=== PATIENT | male | born 1960 | race Caucasian/White ===

== ENCOUNTER → 2017-10-13 | Outpatient (CLI) | payer OTHER ==
--- NOTE | 2017-10-13 10:34 | RAD ---
2 views left hip 10/13/2017 2:00 AM Indication: DISABILITY LOW BACK AND HIP PAIN Comparison: None Findings: No evidence of acute fracture or dislocation is identified. Mild superior joint space narrowing and some minimal subchondral sclerosis involving the lateral acetabulum noted. No acute soft tissue changes are seen. Impression: Mild degenerative changes of the left hip without evidence of acute osseous abnormality
--- NOTE | 2017-10-13 11:19 | RAD ---
Low back pain, 3 views, 10/13/2017: History: Chronic low back and hip pain There are 4 lumbar type vertebral bodies. For purposes of this report the lowest visible disc space will be considered to be L4-S1. The lumbar vertebral heights are well-maintained. There are moderate scattered marginal spurs, including prominent posterior spurring at L4-S1. There is mild narrowing of scattered disc spaces in the lumbar spine. There are moderate degenerative changes involving the facet joints in the lower lumbar spine. There is a minimal associated retrolisthesis at L3-4. No fracture is identified. Minimal aortic calcific plaquing is present. IMPRESSION: 1. Moderate multilevel degenerative change. 2. Minimal retrolisthesis at L4-S1 due to facet joint arthropathy.
== END | disposition home or self-care (01) ==
LOC: DXRAD 09:48
PROVIDERS: ATTEND Surgery
DX: M48.061 Spinal stenosis, lumbar region without neurogenic claudication (principal); M12.88 Other specific arthropathies, not elsewhere classified, other specified site; M25.552 Pain in left hip; G89.29 Other chronic pain
CPT/HCPCS: 72100; 73502

== ENCOUNTER 2019-07-12 21:46 | Observation (INO) | payer MEDICARE, MEDICAID ==
[~2019-07-12] VITALS: Ht 180.3 cm; Wt 95.9 kg
[2019-07-12] MEDS ORDERED: IV RINGERS SOLUTION,LACTATED 1,000 ML IV SCH (21:55)
--- NOTE | 2019-07-12 21:55 | PHYS DOC ---
Past History Past Medical History: Anxiety, CAD, Hypertension, Other Smoking: Chew Adult General Chief Complaint Chief Complaint: ".. I got this chest pain.. it started maybe 45 minutes ago.. here on the Lt . and into my Lt arm.. it really got worse the last 25 minutes.. I usually go to [place]... I did take my aspirin today.. I have not been taking my other meds.. " HPI HPI Patient is a 59 year old male who presents with above hx and complaints of Lt sided chest pain that radiates into Lt shoulder and arm... Pt. states pain initially was 10 out of 10. Patient did have some diaphoresis with dyspnea and pain. Patient states he's first diagnosed with coronary artery disease approximately 5 years ago at [place]. At that time he had a stress treadmill testing. Patient has also long-standing history of hypertension with episodes with accelerated hypertension. Patient states he has been compliant with his meds recently. No history of injury. No History of significant ill contacts. No history immunosuppression. Chest pain post Ativan,ASA, Nitro, Labetalol, Lovenox = 2/10. Pain 0/10 by time of transfer to [facility]. Patient doesn't smoke but does chew tobacco. There is a family history of mother with dementia , his father that had coronary artery disease with eventual triple bypass age 70. Has brothers and sisters but does not know their medical status. Review of Systems Review of Systems Constitutional: Denies fever or chills [] Eyes: Denies change in visual acuity, redness, or eye pain [] HENT: Denies nasal congestion or sore throat [] Respiratory: Denies cough or shortness of breath [] Cardiovascular: No additional information not addressed in HPI [] GI: Denies abdominal pain, nausea, vomiting, bloody stools or diarrhea [] : Denies dysuria or hematuria [] Musculoskeletal: Denies back pain or joint pain [] Integument: Denies rash or skin lesions [] Neurologic: Denies headache, focal weakness or sensory changes [] Endocrine: Denies polyuria or polydipsia [] All other systems were reviewed and found to be within normal limits, except as documented in this note. Family History Family History Coronary artery disease and dementia Current Medications Current Medications See nursing for home medications Allergies Allergies No known drug allergies Physical Exam Physical Exam Constitutional: in acute distress, non-toxic appearance. [] HENT: Normocephalic, atraumatic, bilateral external ears normal, oropharynx moist, no oral exudates, nose normal. []Mustache to chops facial hair. Eyes: PERRLA, EOMI, conjunctiva normal, no discharge. [] Neck: Normal range of motion, no tenderness, supple, no stridor. [] Cardiovascular: Tachycardia Heart rate regular rhythm, no murmur []PMI to the left Lungs & Thorax: Bilateral breath sounds equal at apex with scattered wheezes auscultation . Lt. basilar few rhonchi and crackles. Abdomen: Bowel sounds decreased, soft, no tenderness, no masses, no pulsatile masses. [] Skin: Warm, mildly diaphoretic, no erythema, no rash. [] Back: No tenderness, no CVA tenderness. [] Extremities: No tenderness, no cyanosis, no clubbing, ROM intact, no edema. [] No cording appreciated. Neurologic: Alert and oriented X 3, normal motor function, normal sensory function, no focal deficits noted. [] Psychologic: Affect anxious, judgement normal, mood normal. [] EKG EKG My interpretation EKG shows a sinus tachycardia at 146 eats per minute. Does have some leftward axis. Does have an inferior strain pattern.[] Radiology/Procedures Radiology/Procedures [][address] [address] IMAGING REPORT Signed PATIENT: DAIN ANN ACCOUNT: [id number] : 1960 LOCATION: ER AGE: 59 SEX: M EXAM STATUS: REG ER ORD. PHYSICIAN: DAFNE VALLES MD REASON: cp, SHORT OF AIR, WEAKNESS, X A FEW HOURS PROCEDURE: PORTABLE CHEST 1V Exam: Chest one view INDICATION: Shortness of air TECHNIQUE: Frontal view of the chest Comparisons: None FINDINGS: The cardiomediastinal silhouette and pulmonary vessels are within normal limits. Strandy opacity at the left lung base, likely representing atelectasis. Remaining lungs are clear. IMPRESSION: Left basilar atelectasis. Electronically signed by: Ar Puente MD (07/12/2019 11:40 PM) [facility] DICTATED AND SIGNED BY: AR PUENTE MD DATE: 07/12/19 6835 CC: DAFNE VALLES MD; PCP,NO ~ Course & Med Decision Making Course & Med Decision Making Pertinent Labs and Imaging studies reviewed. (See chart for details) Patient admitted to Dr. Conley with consult to cardiology.. Heart score 4 to 5 Impression: 1. Chest pain 2. Accelerated HTN 3. SVTachycardia 4. Tobacco Use- Chews 5. Hypomagnesium 1.6 6. Urine Tox - Marijuana [] Dragon Disclaimer Dragon Disclaimer This electronic medical record was generated, in whole or in part, using a voice recognition dictation system. Departure Departure: Disposition: HOME/RESIDENCE PRIOR TO ADM Condition: STABLE Referrals: PCP,ETHAN (PCP) Eder Disclaimer This chart was dictated in whole or in part using Voice Recognition software in a busy, high-work load, and often noisy Emergency Department environment. It may contain unintended and wholly unrecognized errors or omissions. DAFNE VALLES MD Jul 12, 2019 21:55
[2019-07-12] MEDS ORDERED: NITROGLYCERIN OINT 1 GM PACKET. ONE (22:00)
[2019-07-12] MEDS ORDERED: ENOXAPARIN ** NOTE DOSE ** SYRINGE SQ ONE (22:00)
[2019-07-12] MEDS ORDERED: ASPIRIN 81 MG TAB.CHEW ONE (22:00)
[2019-07-12] MEDS ORDERED: NITROGLYCERIN OINT 1 GM PACKET. TP ONE (22:00)
[2019-07-12] MEDS ORDERED: ASPIRIN 81 MG TAB.CHEW PO ONE (22:00)
[2019-07-12] MEDS ORDERED: LORazepam 1 MG TABLET PO ONE (22:00)
[2019-07-12 22:14] LABS: BASO # 0.3 x10^3/uL (0.0-0.2); BASO % 2 % (0-3); EOS % 0 % (0-3); HEMATOCRIT 45.4 % (39.0-53.0); HEMOGLOBIN 15.4 g/dL (13.0-17.5); LYMPH # 2.1 x10^3/uL (1.0-4.8); LYMPH % 19 % (24-48); MEAN CORPUSCULAR HEMOGLOBIN 31 pg (25-35); MEAN CORPUSCULAR HGB CONC 34 g/dL (31-37); MEAN CORPUSCULAR VOLUME 90 fL (79-100); MONO # 0.2 x10^3/uL (0.0-1.1); MONO % 1 % (0-9); NEUT # 8.4 x10^3uL (1.8-7.7); NEUT % 77 % (31-73); PLATELET COUNT 216 x10^3/uL (140-400); RED BLOOD COUNT 5.03 x10^6/uL (4.30-5.70); RED CELL DISTRIBUTION WIDTH 13.8 % (11.5-14.5); WHITE BLOOD COUNT 10.9 x10^3/uL (4.0-11.0)
[2019-07-12] MEDS ORDERED: LABETALOL 20 MG/4 ML DISP.SYRIN. IVP ONE ×2 (22:15→23:00)
[2019-07-12 22:33] LABS: ALBUMIN 3.9 g/dL (3.4-5.0); CALCIUM 8.6 mg/dL (8.5-10.1); CREATININE 1.2 mg/dL (0.7-1.3); DIRECT BILIRUBIN 0.2 mg/dL (0.0-0.2); GFR 62.4; MAGNESIUM 1.6 mg/dL (1.8-2.4); POTASSIUM 3.7 mmol/L (3.5-5.1); TOTAL PROTEIN 7.5 g/dL (6.4-8.2)
[2019-07-12] MEDS ORDERED: ONDANSETRON PF 4 MG/2 ML VIAL. IV PRN (22:45)
[2019-07-12] MEDS ORDERED: MORPHINE SULFATE 2 MG/ML DISP.SYRIN. IV PRN (22:45)
[2019-07-12] MEDS ORDERED: LORazepam 1 MG TABLET PO PRN (22:45)
[2019-07-12] MEDS ORDERED: MAGNESIUM SULFATE 2GM 50 ML IV ONE (22:45)
[2019-07-12] MEDS ORDERED: ACETAMINOPHEN 325 MG TABLET PO PRN (22:45)
--- NOTE | 2019-07-12 23:43 | RAD ---
Exam: Chest one view INDICATION: Shortness of air TECHNIQUE: Frontal view of the chest Comparisons: None FINDINGS: The cardiomediastinal silhouette and pulmonary vessels are within normal limits. Strandy opacity at the left lung base, likely representing atelectasis. Remaining lungs are clear. IMPRESSION: Left basilar atelectasis. Electronically signed by: Ar Tripp MD (07/12/2019 11:40 PM) [facility]
[2019-07-12 23:54] LABS: BARBITURATES NEG (NEG); BENZODIAZEPINES NEG (NEG); CANNABINOIDS POS (NEG); COCAINE NEG (NEG); METHADONE NEG (NEG); OPIATES NEG (NEG); PHENCYCLIDINE NEG (NEG)
[2019-07-12 23:57] LABS: AMPHETAMINE/METHAMPHETAMINE NEG (NEG)
[2019-07-13 00:02] LABS: BACTERIA,URINE 0 /HPF (0-FEW); BILIRUBIN,URINE NEG (NEG); CLARITY,URINE CLEAR; COLOR,URINE YELLOW; GLUCOSE,URINE NEG (NEG); NITRITE,URINE NEG (NEG); RBC,URINE 0 /HPF (0-2); SQUAMOUS EPITHELIAL CELL,UR OCC /LPF; UROBILINOGEN,URINE 0.2 mg/dL (0.2 mg/dL); WBC,URINE OCC /HPF (0-4)
[2019-07-13 00:15] VITALS: BP 128/89
--- NOTE | 2019-07-13 00:15 | NUR ---
Pt was admitted from ER to ICU bed 5 via [facility], accompanied by EMS, nursing staff and son. Pt transferred from [place] to bed independently with stand-by assist, steady gait noted. Pt here for chest pain, high blood pressure and electrolyte imbalance. Pt is A&Ox4 pleasant, cooperative and very talkative. Pt currently denies chest pain or discomfort. Admission assessment completed. Health history and home medications reviewed with pt. Pt lives at home alone in the "[place]". VSS. Pt placed on Telemetry, S.tachy noted on monitor. Lovenox for VTE. Py UTD on flu vaccine. Pt was given written information regarding hospital policies, unit procedures and contact persons. Valuables were checked and left at bedside. Cardiology consulted. Call light within reach.
[2019-07-13] MEDS ORDERED: QUET400T4 PO (00:47)
[2019-07-13] MEDS ORDERED: ASPI81TA11 PO (00:47)
[2019-07-13] MEDS: IPRATRPIUM/ALBUTEROL 0.5/2.5MG 3 ML NEBU. NEB SCH ×2 (05:39→09:14)
[2019-07-13 05:40] VITALS: BP 123/86
--- NOTE | 2019-07-13 06:14 | EKG ---
[address] [address] Test Date: 2019-07-12 Test Time: 21:58:36 Pat Name: DAIN ANN Department: Room: Gender: M Independent Crop Consultant: : 1960 Requested By: DAFNE VALLES Order Number: [id number] Reading MD: Measurements Intervals [place] Rate: 146 P: -118 KS: 122 QRS: -26 QRSD: 84 T: 75 QT: 270 QTc: 422 Interpretive Statements SUPRAVENTRICULAR TACHYCARDIA LEFTWARD AXIS QRS(T) CONTOUR ABNORMALITY CONSIDER INFERIOR MYOCARDIAL DAMAGE T ABNORMALITY IN HIGH LATERAL LEADS ABNORMAL ECG RI6.01 No previous ECG available for comparison
[2019-07-13 06:37] LABS: BASO # 0.1 x10^3/uL (0.0-0.2); BASO % 2 % (0-3); EOS % 1 % (0-3); HEMATOCRIT 40.8 % (39.0-53.0); LYMPH # 2.8 x10^3/uL (1.0-4.8); LYMPH % 44 % (24-48); MEAN CORPUSCULAR HEMOGLOBIN 31 pg (25-35); MEAN CORPUSCULAR HGB CONC 34 g/dL (31-37); MEAN CORPUSCULAR VOLUME 91 fL (79-100); MONO # 0.8 x10^3/uL (0.0-1.1); MONO % 13 % (0-9); NEUT # 2.7 x10^3uL (1.8-7.7); NEUT % 42 % (31-73); PLATELET COUNT 209 x10^3/uL (140-400); RED BLOOD COUNT 4.51 x10^6/uL (4.30-5.70); RED CELL DISTRIBUTION WIDTH 13.8 % (11.5-14.5); WHITE BLOOD COUNT 6.4 x10^3/uL (4.0-11.0)
[2019-07-13 06:47] LABS: CALCIUM 8.3 mg/dL (8.5-10.1); CREATININE 1.1 mg/dL (0.7-1.3)
[2019-07-13 07:10] VITALS: BP 129/90
--- NOTE | 2019-07-13 07:58 | PDOC2 ---
CARDIAC CONSULT DATE OF CONSULT Date Of Consult DATE: 07/13/19 TIME: 07:55 REASON FOR CONSULT Reason for Consult Chest pain Accelerated HTN REFERRING PHYSICIAN Referring Physician Dr. Ramirez SOURCE Source: Chart review, Patient HPI History of Present Illness This is a 59 yo male who presented secondary to chest pain. Patient reports he woke in the middle of the night with intense shaking all over his body. Began having stabbing pain in his left chest. [place] slightly short of breath. No dizziness, diaphoresis, or nausea/vomiting. Palpitation to left chest seemed to make pain worse. Has some numbness in his left arm. Had difficulty getting out of bed due to the shaking so he called his so for help. Has had these symptoms before and has been evaluated with a treadmill stress that he reports as normal. Is very active daily walking up to 2 miles per day without any chest pain. PAST MEDICAL HISTORY Cardiovascular: HTN GI: GERD Psych: Anxiety, Bipolar, Depression, Schizophrenia, Other (PTSD) PAST SURGICAL HISTORY Past Surgical History: Appendectomy, Hernia Repair FAMILY HISTORY Family History: Coronary Artery Disease (dad ) SOCIAL HISTORY Smoke: No ALCOHOL: none Drugs: Marijuana Lives: Alone CURRENT MEDICATIONS Current Medications Current Medications Aspirin (Children'S Aspirin) 324 mg 1X ONCE PO Last administered on 07/12/19at 22:06; Start 07/12/19 at 22:00; Stop 07/12/19 at 22:01; Status DC Enoxaparin Sodium (Lovenox 150mg Syringe) 90 mg 1X ONCE SQ Last administered on 07/12/19at 22:13; Start 07/12/19 at 22:00; Stop 07/12/19 at 22:01; Status DC Lactated Ringer's 1,000 ml @ 100 mls/hr Q10H IV Last administered on 07/12/19at 22:03; Start 07/12/19 at 21:55; Stop 07/13/19 at 07:54 Nitroglycerin (Nitro-Bid Oint) 1 inch 1X ONCE TP Last administered on 07/12/19at 22:06; Start 07/12/19 at 22:00; Stop 07/12/19 at 22:01; Status DC Lorazepam (Ativan) 1 mg 1X ONCE PO Last administered on 07/12/19at 22:13; Start 07/12/19 at 22:00; Stop 07/12/19 at 22:01; Status DC Aspirin (Children'S Aspirin) 81 mg STK-MED ONCE .ROUTE ; Start 07/12/19 at 22:00; Stop 07/12/19 at 22:00; Status DC Nitroglycerin (Nitro-Bid Oint) 1 inch STK-MED ONCE .ROUTE ; Start 07/12/19 at 22:00; Stop 07/12/19 at 22:00; Status DC Labetalol HCl (Normodyne) 10 mg 1X ONCE IVP Last administered on 07/12/19at 22:26; Start 07/12/19 at 22:15; Stop 07/12/19 at 22:16; Status DC Ondansetron HCl (Zofran) 4 mg PRN Q4HRS PRN IV NAUSEA/VOMITING; Start 07/12/19 at 22:45; Stop 07/13/19 at 22:44 Morphine Sulfate (Morphine 2mg Syringe) 2 mg PRN Q4HRS PRN IV PAIN; Start 07/12/19 at 22:45; Stop 07/13/19 at 22:44 Acetaminophen (Tylenol) 650 mg PRN Q4HRS PRN PO FEVER Last administered on 07/13/19at 07:07; Start 07/12/19 at 22:45; Stop 07/13/19 at 22:44 Albuterol/ Ipratropium (Duoneb) 3 ml RTQID NEB Last administered on 07/13/19at 05:39; Start 07/13/19 at 08:00; Stop 07/14/19 at 07:59 Nitroglycerin (Nitro-Bid Oint) 1 inch TID TP ; Start 07/13/19 at 09:00 Aspirin (Children'S Aspirin) 81 mg DAILY PO ; Start 07/13/19 at 09:00 Enoxaparin Sodium (Lovenox 100mg Syringe) 90 mg BID SQ ; Start 07/13/19 at 09:00 Lorazepam (Ativan) 1 mg QIDPRN PRN PO Anxiety; Start 07/12/19 at 22:45 Magnesium Sulfate 50 ml @ 25 mls/hr 1X ONCE IV Last administered on 07/12/19at 22:55; Start 07/12/19 at 22:45; Stop 07/13/19 at 00:44; Status DC Labetalol HCl (Normodyne) 10 mg 1X ONCE IVP Last administered on 07/12/19at 22:56; Start 07/12/19 at 23:00; Stop 07/12/19 at 23:01; Status DC Active Scripts Active Reported Seroquel (Quetiapine Fumarate) 400 Mg Tablet 400 Mg PO QHS LAST DOSE GIVEN: DATE: TIME: NEXT DOSE DUE: DATE: TIME: Low Dose Aspirin Ec (Aspirin) 81 Mg Tablet.dr 81 Mg PO HS LAST DOSE GIVEN: DATE: TIME: NEXT DOSE DUE: DATE: TIME: ALLERGIES Allergies: Coded Allergies: No Known Drug Allergies (Unverified , 07/12/19) ROS Review of Systems 14 point ROS conducted with pertinent positives noted above in hPI PHYSICAL EXAM General: Alert, Oriented X3, Cooperative, No acute distress HEENT: Atraumatic, Mucous membr. moist/pink Lungs: Clear to auscultation, Normal air movement Heart: Regular rate, Normal S1, Normal S2, No murmurs Abdomen: Soft, No tenderness Extremities: No edema, Normal pulses Skin: No breakdown Neuro: Normal speech, Sensation intact Psych/Mental Status: Mental status NL, Mood NL MUSCULOSKELETAL: Osteoarthritic changes both hands VITALS Vital Signs Vital Signs Date Time Temp Pulse Resp B/P (MAP) Pulse Ox O2 Delivery O2 Flow Rate FiO2 07/13/19 07:14 Room Air 07/13/19 07:10 82 129/90 (103) 07/13/19 05:40 97 07/13/19 05:40 98.0 16 LABS LABS Laboratory Tests Test 07/12/19 21:55 07/12/19 23:00 07/13/19 02:00 07/13/19 05:50 White Blood Count 10.9 x10^3/uL (4.0-11.0) 6.4 x10^3/uL (4.0-11.0) Red Blood Count 5.03 x10^6/uL (4.30-5.70) 4.51 x10^6/uL (4.30-5.70) Hemoglobin 15.4 g/dL (13.0-17.5) 14.0 g/dL (13.0-17.5) Hematocrit 45.4 % (39.0-53.0) 40.8 % (39.0-53.0) Mean Corpuscular Volume 90 fL (79-100) 91 fL (79-100) Mean Corpuscular Hemoglobin 31 pg (25-35) 31 pg (25-35) Mean Corpuscular Hemoglobin Concent 34 g/dL (31-37) 34 g/dL (31-37) Red Cell Distribution Width 13.8 % (11.5-14.5) 13.8 % (11.5-14.5) Platelet Count 216 x10^3/uL (140-400) 209 x10^3/uL (140-400) Neutrophils (%) (Auto) 77 % (31-73) 42 % (31-73) Lymphocytes (%) (Auto) 19 % (24-48) 44 % (24-48) Monocytes (%) (Auto) 1 % (0-9) 13 % (0-9) Eosinophils (%) (Auto) 0 % (0-3) 1 % (0-3) Basophils (%) (Auto) 2 % (0-3) 2 % (0-3) Neutrophils # (Auto) 8.4 x10^3uL (1.8-7.7) 2.7 x10^3uL (1.8-7.7) Lymphocytes # (Auto) 2.1 x10^3/uL (1.0-4.8) 2.8 x10^3/uL (1.0-4.8) Monocytes # (Auto) 0.2 x10^3/uL (0.0-1.1) 0.8 x10^3/uL (0.0-1.1) Eosinophils # (Auto) 0.0 x10^3/uL (0.0-0.7) 0.0 x10^3/uL (0.0-0.7) Basophils # (Auto) 0.3 x10^3/uL (0.0-0.2) 0.1 x10^3/uL (0.0-0.2) Prothrombin Time 10.4 SEC (9.4-11.4) Prothromb Time International Ratio 1.0 (0.9-1.1) Activated Partial Thromboplast Time 27 SEC (23-33) D-Dimer (Jadyn) 0.46 mg/L (0.00-0.50) Sodium Level 140 mmol/L (136-145) 142 mmol/L (136-145) Potassium Level 3.7 mmol/L (3.5-5.1) 4.0 mmol/L (3.5-5.1) Chloride Level 103 mmol/L (98-107) 105 mmol/L (98-107) Carbon Dioxide Level 22 mmol/L (21-32) 29 mmol/L (21-32) Anion Gap 15 (6-14) 8 (6-14) Blood Urea Nitrogen 18 mg/dL (8-26) 15 mg/dL (8-26) Creatinine 1.2 mg/dL (0.7-1.3) 1.1 mg/dL (0.7-1.3) Estimated GFR (Cockcroft-Gault) 62.4 69.0 Glucose Level 114 mg/dL (70-99) 100 mg/dL (70-99) Calcium Level 8.6 mg/dL (8.5-10.1) 8.3 mg/dL (8.5-10.1) Magnesium Level 1.6 mg/dL (1.8-2.4) 2.3 mg/dL (1.8-2.4) Total Bilirubin 1.0 mg/dL (0.2-1.0) Direct Bilirubin 0.2 mg/dL (0.0-0.2) Aspartate Amino Transf (AST/SGOT) 18 U/L (15-37) Alanine Aminotransferase (ALT/SGPT) 30 U/L (16-63) Alkaline Phosphatase 57 U/L (46-116) Creatine Kinase 100 U/L (39-308) Troponin I Quantitative < 0.017 ng/mL (0-0.055) 0.024 ng/mL (0-0.055) < 0.017 ng/mL (0-0.055) EY-Kmf-F-Type Natriuretic Peptide 31 pg/mL (0-124) Total Protein 7.5 g/dL (6.4-8.2) Albumin 3.9 g/dL (3.4-5.0) Lipase 170 U/L (73-393) Urine Collection Type Unknown Urine Color Yellow Urine Clarity Clear Urine pH 5.5 Urine Specific [place] >=1.030 Urine Protein 30 mg/dl (NEG-TRACE) Urine Glucose (UA) Neg mg/dL (NEG) Urine Ketones (Stick) Trace mg/dL (NEG) Urine Blood Neg (NEG) Urine Nitrite Neg (NEG) Urine Bilirubin Neg (NEG) Urine Urobilinogen Dipstick 0.2 mg/dL (0.2 mg/dL) Urine Leukocyte Esterase Neg (NEG) Urine RBC 0 /HPF (0-2) Urine WBC Occ /HPF (0-4) Urine Squamous Epithelial Cells Occ /LPF Urine Bacteria 0 /HPF (0-FEW) Urine Opiates Screen Neg (NEG) Urine Methadone Screen Neg (NEG) Urine Barbiturates Neg (NEG) Urine Phencyclidine Screen Neg (NEG) Urine Amphetamine/Methamphetamine Neg (NEG) Urine Benzodiazepines Screen Neg (NEG) Urine Cocaine Screen Neg (NEG) Urine Cannabinoids Screen Pos (NEG) Urine Ethyl Alcohol Neg (NEG) ASSESSMENT/PLAN Assessment/Plan 1. Chest pain, atypical. AMI ruled out. 2. Accelerated hypertension; better controlled. 3. Hypomagnesemia; replaced 4. Marijuana use 5. Bipolar, schizophrenia Recommendations Will start amlodipine for BP control. Previously on lisinopril and had side ef fects Echo to assess LV systolic function, may be done on an outpatient basis Lipids statin if indicated ASA therapy Supportive care DAVID GREGORIO APRN Jul 13, 2019 07:58
[2019-07-13] MEDS: NITROGLYCERIN OINT 1 GM PACKET. TP SCH ×2 (08:18→08:24)
--- NOTE | 2019-07-13 08:24 | NUR ---
Nitro Bid paste was held per RHONA Addison verbal order. Patient denies any chest pain, SOB, N/V at this time. Patient states that " I feel better than what I did." Patient is alert and oriented x 4, speech is clear, able to make wants and needs known and able to verbalize understanding of others. Cooperative with staff in all cares. No negative moods or behaviors. Patient is stand by assist, skin in tact, IV 20 g SL in RAC. Lungs are CTA, No cough or SOA observed. Respirations are equal and unlabored. Patient is on RA for oxygen with 02 stats above 90. Patient is SR on the monitor with a heart rate of 85. HRR auscultated with S1S2 heard, normal rhythm. Patient is continent of bowel and bladder, last BM on 07-12-2019. Patient is resting in bed at this time with RHONA Addison from cardiology in room.
--- NOTE | 2019-07-13 08:29 | NUR ---
New order for NORVASC 5mg daily for treatment of HIGH BLOOD PRESSURE, and an echocardiogram received verbally from Cyn MELGOZA for cardiology.
[2019-07-13 08:48] LABS: % ATYL 4 % (0-0); % BANDS 7 % (0-9); % EOS 1 % (0-5); % LYMPHS 40 % (24-48); % MONOS 9 % (0-10); % SEGS 39 % (35-66)
[2019-07-13 08:57] LABS: PLT ESTIMATE ADEQUATE (ADEQUATE)
[2019-07-13] MEDS ORDERED: ASPIRIN 81 MG TAB.CHEW PO SCH (09:00)
[2019-07-13] MEDS ORDERED: amLODIPine BESYLATE 5 MG TABLET PO SCH (09:00)
[2019-07-13] MEDS ORDERED: ENOXAPARIN ** NOTE DOSE ** SYRINGE SQ SCH (09:00)
[2019-07-13 10:06] VITALS: BP 132/95
[2019-07-13 10:41] VITALS: BP 132/95
--- NOTE | 2019-07-13 11:41 | HP ---
ADMIT DATE: 07/13/2019 HISTORY OF PRESENT ILLNESS: The patient is a 59-year-old male patient complaining of chest pain that started about 45 minutes prior to arrival to the Emergency Room stating that the pain was in the left arm and his left side of the chest. Apparently all this happened when he took his Seroquel and ibuprofen for headache. He stated the pain is in the left side of the chest radiating to the left shoulder and arm and did complain of diaphoresis, shortness of breath. He was evaluated in the Emergency Room where he has had his first set of cardiac enzyme, was less than 0.017. His EKG showed that he was in sinus tachycardia at 146 beats per minute with leftward axis and his chest x-ray showed left basilar atelectasis. The patient was admitted with chest pain. His blood pressure was also high and has also an episode of supraventricular tachycardia. His heart rate was 143. We will obviously do two sets of cardiac enzyme and consult the Cardiology team for evaluation and treatment. PAST MEDICAL HISTORY: Significant for hypertension, hyperlipidemia, bipolar disorder, and posttraumatic stress disorder. PAST SURGICAL HISTORY: Significant for right inguinal hernia repair as well as appendectomy. ALLERGIES: He has no known drug allergies. MEDICATIONS: He is currently on aspirin and quetiapine fumarate or Seroquel 400 mg at bedtime. FAMILY HISTORY: His mother is alive at age of late 70s and has Alzheimer's disease. Father is alive at the age of 80 and has had coronary artery bypass graft surgery. SOCIAL HISTORY: He is , has 2 sons and 2 daughters. He chews tobacco, quit drinking alcohol 5-6 years ago, continued to smoke marijuana occasionally. REVIEW OF SYSTEMS: As per history of present illness. PHYSICAL EXAMINATION GENERAL: On arrival to the Emergency Room, the patient was somewhat tachypneic, tachycardic, but no pallor, jaundice, cyanosis or thyromegaly. No jugular venous distention or limb edema. VITAL SIGNS: His heart rate was 143, blood pressure was 152/129, temperature was 98, respiratory rate was 32 and oxygen saturation was 95% on room air. HEAD, EYES, EARS, NOSE AND THROAT: Showed normocephalic, atraumatic. NECK: Supple. HEART: Showed normal first and second heart sounds. No gallop or murmur. CHEST: Clear to auscultation. No crepitation or rhonchi. ABDOMEN: Slightly distended, soft, nontender. NEUROLOGIC: He was awake, alert, responding appropriately. All cranial nerves intact. EXTREMITIES: He moves extremities without difficulty. He ambulates without assistance or assistive devices. LABORATORY DATA: His lab work on admission showed that his serum sodium was 140, potassium 3.7, chloride 103, bicarbonate 22, anion gap of 15, BUN 18, creatinine 1.2, estimated GFR was 62 mL per minute, his glucose 114, calcium was 8.6, magnesium was 1.6. Total bilirubin, AST, ALT, alkaline phosphatase were normal. CK was 100. Total protein was 7.5, albumin was 3.9. Lipase was 170. His prothrombin time, INR, aPTT and D-dimer are all within normal range. His urinalysis was essentially unremarkable and toxic screen was positive for cannabinoids. ASSESSMENT AND PLAN: The patient was admitted with chest pain, accelerated hypertension, tobacco use, hypomagnesemia and marijuana abuse. We will do 2 more sets of cardiac enzyme. We will consult the Cardiology team and decide the further management accordingly. SAMMY EAST MD DR: SAHIL/arnaud JOB#: [id number] / [id number]
--- NOTE | 2019-07-13 11:57 | NUR ---
AT 1130 Patient told this nurse " i need to leave and i need to leave now. I can't stay. My anxiety and PTSD is getting bad, i don't want ot wait for the dr. it's nothing against you, i just need to go." This nurse educated patient about the risks and consequences involved in leaving the hospital at this time, against medical advice. Patient verbally verified understanding of education received. Patient left hospital at [address] Conley verbally notified, Nurse Finishing Range Feeder Dania verbally notified, security verbally notified.
--- NOTE | 2019-07-13 12:07 | NUR ---
Discharge Note: DAIN [facility] TICU Discharge instructions and discharge home medications reviewed with Patient and a copy given. All questions have been answered and understanding verbalized. The following instructions and handouts were given: Discontinued lines and drains: intact. Patient discharged to [facility] with son Jadon present at bedside. Ambulated independently off unit.
[2019-07-13 13:48] LABS: THYROID STIM HORMONE (TSH) 1.673 uIU/mL (0.358-3.740)
== END 2019-07-13 12:09 | disposition left against medical advice (07) ==
LOC: ER 21:46 → ICU 22:00 → INTOOBSV 22:00
PROVIDERS: ADMIT Internal Medicine; ATTEND Internal Medicine
DX: R07.89 Other chest pain (principal); I10 Essential (primary) hypertension; I25.10 Atherosclerotic heart disease of native coronary artery without angina pectoris; I47.1 Supraventricular tachycardia; F12.10 Cannabis abuse, uncomplicated; F17.200 Nicotine dependence, unspecified, uncomplicated; F41.9 Anxiety disorder, unspecified; E83.42 Hypomagnesemia; Z79.82 Long term (current) use of aspirin; Z90.49 Acquired absence of other specified parts of digestive tract; Z98.890 Other specified postprocedural states
CPT/HCPCS: 36415; 71045; 80048; 80061; 80076; 80307; 81001; 82550; 83690; 83735; 83880; 84443; 84484; 85007; 85025; 85379; 85610; 85730; 93005; 94640; 96365; 96366; 96372; 96375; 99284; G0238; G0378; J1650; J3475; J3490; J7120; J7620; G0379